=== PATIENT | male | born 1940 | race Caucasian/White ===

== ENCOUNTER 2016-12-19 13:23 | Inpatient (IN) | payer MEDICARE ==
[~2016-12-19] VITALS: Ht 177.8 cm; Wt 91.9 kg
[2016-12-19] VITALS (7 sets, daily range): BP systolic 116–190; BP diastolic 72–95; PULSE 52–70; RESP 16–20; O2SAT 93–98
[2016-12-19] MEDS ORDERED: CHOL100043 PO (13:29)
[2016-12-19] MEDS ORDERED: LISI10TA PO (13:29)
[2016-12-19] MEDS ORDERED: ASPI-973 PO (13:29)
--- NOTE | 2016-12-19 13:50 | ED.REPORT ---
HPI-Chest Pain 40 and Over Date of Service Dec 19, 2016 ED Provider: Gagandeep Baeza MD Pt is a 76 y/o male w/ a hx of HTN, CKD stage 1, mild asthma, hypothyroid, presenting to the ED from his PCP office due to intermittent exertional CP onset 1 month ago. He has been noticing mild chest discomfort while he exercises on the elliptical bicycle consistently for 1 month. He was last exercising this morning and decided to be seen by his PCP Dr. Salgado regarding these pains. An EKG was performed at his PCP visit which showed a LBBB as well as blood tests showing elevated troponin I of 0.3. He also notes that he hasn't been able to finish his regular exercise as consistently as normal in the sense that he tires slightly more easily. Pt denies SOB, nausea, vomiting, diaphoresis , fever, chills, cough, abdominal pain. Nursing Notes Stated Complaint: HEART PROBLEMS Chief Complaint: Chest Pain Nursing Notes Reviewed: Yes Allergies: Coded Allergies: No Known Drug Allergies (Verified Allergy, Unknown, 12/19/16) Scheduled Aspirin (Aspirin) 81 Mg Tablet 81 MG PO DAILY Cholecalciferol (Vitamin D3) (Vitamin D) 1,000 Unit Tablet 1,000 UNIT PO DAILY Lisinopril (Lisinopril) 10 Mg Tablet 15 MG PO DAILY General Time Seen by MD: 13:41 Chief Complaint Chest pain Hx Obtained From: Patient, Primary care provider Arrived By: Walk-in Sudden in Onset?: No Onset Occurred: More than a week ago... (1 month) Symptom Duration: Intermittent Location: : Substernal Quality: Burning, Painful Severity: Current: No pain currently Severity: Maximum: Mild Exacerbated by: Exertion, moderate Past Medical History Past Medical History Hypertension Asthma Hypothyroid CKD stage I Hx pneumonia Hx basal cell carcinoma Erectile dysfunction Past Surgical History Tonsillectomy Removal of skin cancers Smoking History Never Smoker Social History Alcohol Use: Denies alcohol use Other Social History: Ambulatory Status Independent Review of Systems Constitutional: Denies: Chills, Fever Respiratory: Denies: Non-productive cough, Shortness of breath Cardiovascular: Reports: Chest pain GI: Denies: Abdominal pain, Nausea, Vomiting Skin: Denies Diaphoresis Complete sys rev & neg: except as marked. Physical Exam Initial Vital Signs Vital Signs (First) Date Time Temp Pulse Resp B/P Pulse Ox O2 Delivery O2 Flow Rate FiO2 12/19/16 13:26 36.1 66 18 190/95 98 Room Air Initial VS: Reviewed, Vital signs abnormal Head / Eyes: Atraumatic, Normocephalic, PERRL ENT: Mucous membranes moist, Conjunctiva normal, No scleral icterus Neck: Supple, Full range of motion Extremities: Vascular intact, Neuro intact, No swelling, No tenderness Skin: Warm, Dry, No cyanosis Neurologic: Alert, Oriented, Nonfocal Psychiatric: Mood/affect normal, Behavior normal, Normal thought content General/Constitutional: Awake, Alert, No acute distress, Well appearing, Cooperative, Not toxic appearing Respiratory / Chest: Atraumatic, Breath sounds NL, Breath sounds = bilat, No respiratory distress, No rales, No rhonchi, No wheezing, No retractions, No stridor, No chest tenderness, No chest wall deformity, No crepitus Cardiovascular: Heart rate NL, Regular rhythm, Heart sounds NL, No gallop, No murmurs, No rubs, Cap refill not delayed, Peripheral circulation NL Abdomen: Atraumatic, Soft, Non-tender, No guarding, No rebound, No distention, No palpable mass Interpretation & Diagnostics Lab Results Interpretation Result Diagram: 12/19/16 1401 12/19/16 1401 Test 12/19/16 14:01 12/19/16 16:53 White Blood Count 5.9th/mm3 (3.8-10.1) Red Blood Count 4.29mil/mm3 (4.40-5.80) Hemoglobin 13.5g/dL (13.8-17.2) Hematocrit 39.2% (41.0-50.0) Mean Corpuscular Volume 91.4fL (81-100) Mean Corpuscular Hemoglobin 31.5pg (27.0-35.0) Mean Corpuscular Hemoglobin Concent 34.4% (32.0-37.0) Red Cell Distribution Width 12.0% (12.3-15.4) Platelet Count 186bil/L (150-400) Neutrophils (%) (Auto) 74.6% (40-74) Lymphocytes (%) (Auto) 17.1% (14-46) Monocytes (%) (Auto) 6.9% (4-12) Eosinophils (%) (Auto) 0.7% (0-5) Basophils (%) (Auto) 0.5% (0-3) Activated Partial Thromboplast Time 24.7sec (22.8-33.0) Sodium Level 137mEq/L (134-144) Potassium Level 4.3mEq/L (3.5-5.2) Chloride Level 99mEq/L (97-108) Carbon Dioxide Level 25mmol/L (18-29) Blood Urea Nitrogen 27mg/dL (8-27) Creatinine 1.47mg/dL (0.76-1.27) Estimat Glomerular Filtration Rate 50mL/min (>59) Glucose Level 94mg/dL (60-99) Calcium Level 9.0mg/dL (8.5-10.1) Magnesium Level 2.5mg/dL (1.6-2.6) Total Bilirubin 0.5mg/dL (0.0-1.2) Aspartate Amino Transf (AST/SGOT) 21U/L (0-50) Alanine Aminotransferase (ALT/SGPT) 10U/L (0-44) Alkaline Phosphatase 37U/L (25-160) Troponin T 0.106ug/L (0.0-0.011) Total Protein 6.6g/dL (6.4-8.4) Albumin 4.3g/dL (3.4-5.0) Thyroid Stimulating Hormone (TSH) 3.800uIU/mL (0.450-4.500) Hold Blue Top Tube Received (Received) ECG Interpretation ECG Interpretation: Sinus rhythm rate 65 LBBB Prolonged [place] interval No prior available for comparison Time: 13:51 Interpreted by: ED physician, Spring Machine Operator Normal ECG Interpretation: No acute ischemic changes X-Ray Chest Interpretation Chest Xray Interpretation: No acute cardiopulmonary disease. - From records transmitted to the ED View: Portable, 1 view Interpretation / Wet Read by: Interpret - Radiologist Re-Eval/Medical Decision Med Decision/Clinical Course 76-year-old male CKD 1 centimeter in by primary doctor for elevated troponin and new left bundle branch block compared to previous EKG from ten years ago. Troponin here is 0.1. EKG with left bundle branch block. Consultation cardiology who recommended admission for NSTEMI. They will cath in the morning. Per Cardiology, given aspirin, plavix, heparin gtt, atorvastatin, lopressor. To continue lopressor 25 bid. Time of Eval: 16:31 Re-Evaluation/Progress Note: Pt rechecked. Informed pt of need for admission. Pt understands and agrees with plan for admission. All questions addressed. Consultation #1: Referral / Consult Name: Mitchell Sellers MD Consulted With: Cardiology Call Returned at: 15:52 Gas Station Clerk: Will see patient, Agrees with eval, Agrees with plan Note: Will evaluate pt in ED. After evaluation, recommends admit on heparin drip and plavix. Plan for cath tomorrow morning. Consultation #2: Referral / Consult Name: Wyatt Abarca MD Consulted With: Hospitalist Call Returned at: 16:40 Gas Station Clerk: Will see patient, Agrees with eval, Agrees with plan, Accepts admit Counseled Regarding: Diagnosis, Lab results, Need for admission Discharge & Departure Primary Impression: NSTEMI (non-ST elevated myocardial infarction) Disposition: ADMITTED TO HOSPITAL Discharge Condition All VS Reviewed: Yes Condition: Stable Referrals: Emma Salgado MD (PCP) Crit Care Except Billable Proc Time Spent: 30-74 minutes Services Performed: Patient management by me, Time spent at bedside, Reviewing test results, Reviewing imaging, Discussing patient care, Documentation in record Scribe Attestation Portions of this note were transcribed by Fitz Brandt. I, Dr. Baeza personally performed the history, physical exam and medical decision-making; I reviewed and confirmed the accuracy of the information in the transcribed note. Signed by Shay Koehler, 12/19/16 - 1400 copies to: Emma Salgado MD, Ben M MD Dec 19, 2016 13:50 FITZ BRANDT Dec 19, 2016 13:52
[2016-12-19 14:14] LABS: BASOPHILS % (AUTO) 0.5 % (0-3); EOSINOPHILS % (AUTO) 0.7 % (0-5); MONOCYTES % (AUTO) 6.9 % (4-12); Mean Corpuscular Hemoglobin 31.5 pg (27.0-35.0); Mean Corpuscular Volume 91.4 fL (81-100); NEUTROPHILS % (AUTO) 74.6 % (40-74); Platelet Count 186 bil/L (150-400)
[2016-12-19 14:42] LABS: TROPONIN T 0.106 ug/L (0.0-0.011)
[2016-12-19 14:43] LABS: Magnesium 2.5 mg/dL (1.6-2.6)
[2016-12-19] MEDS ORDERED: Heparin 25K Unit/500mL 0.45 NS 25,000 UNIT in IV Premix 1 EACH IV ONE (16:35)
[2016-12-19] MEDS ORDERED: Heparin 5,000 Unit/mL Inj IVPUSH ONE (16:35)
[2016-12-19] MEDS ORDERED: 0.9% Sodium Chloride 1,000 ML IV ONE (16:38)
[2016-12-19] MEDS ORDERED: Ondansetron 2 mg/mL 2 mL Inj IVPUSH PRN (16:45)
[2016-12-19] MEDS ORDERED: Alum-Mag Hydrox-Simeth 30 mL Suspension PO PRN (16:45)
[2016-12-19] MEDS ORDERED: Atropine 1 mg/10 mL (Code) Syringe IVPUSH PRN (16:50)
[2016-12-19] MEDS: Heparin 25K Unit/500mL 0.45 NS 25,000 UNIT in IV Premix 1 EACH IV SCH (16:55)
--- NOTE | 2016-12-19 17:06 | PCM.HPMED ---
Subjective Date of Service Dec 19, 2016 Primary Provider: Admitting Physician: Primary Care Physician: Emma Salgado MD Attending Physician: Chief Complaint: Chest pain. Non-ST elevation PR History of Present Illness: This is a 76 result male with past medical history of hypertension, hypothyroidism, asthma, stage I CKD, who was been complaining of chest pain on and off approximately for a month or so . He usually goes to the gym and do elliptical exercises and stated he would have chest pain lasting 5 to repeat approximately, retrosternal, and will improved with resting . Initially he did not be too much attention to it but would stop exercising anytime he has chest pain. Today he developed chest pain, which is more intense and lasting longer. He went to his primary care doctor . An office EKG shows new left bundle branch block, blood tests show troponin of 0.3. Patient was sent to the emergency room for evaluation and admission for non-ST elevation PR . Patient denies any recent fever, chills, abdominal pain, nausea, vomiting, shortness of breath. Review of Systems: A comprehensive review of systems by 12 points is negative except for chest pain as described above in history of present illness Allergies Coded Allergies: fluticasone (Verified Adverse Reaction, Intermediate, coughing, 12/19/16) salmeterol (Verified Adverse Reaction, Intermediate, coughing, 12/19/16) Home Medications Aspirin (Aspirin) 81 Mg Tablet 81 MG PO DAILY Cholecalciferol (Vitamin D3) (Vitamin D) 1,000 Unit Tablet 1,000 UNIT PO DAILY Lisinopril (Lisinopril) 10 Mg Tablet 15 MG PO DAILY PMH Hypertension, Asthma, Hypothyroid, CKD stage I, Hx pneumonia, Hx basal cell carcinoma, Erectile dysfunction Surgical History Tonsillectomy Removal of skin cancer Family History Family history reviewed and it is pertinent for coronary artery disease Social History Hx Alcohol Use: No Hx Substance Use: No Smoking Status: Never Smoker Living Arrangement: with Family Exam Vital Signs Vital Sign - Last Date Time Temp Pulse Resp B/P Pulse Ox O2 Delivery O2 Flow Rate FiO2 12/19/16 13:26 36.1 66 18 190/95 98 Room Air Exam General/constitutional : NAD . well nourished male HEENT / Eyes: Atraumatic, Normocephalic, PERRL, sclerae anicteric Mouth : Moist oropharyngeal mucosa Neck: Supple, Full range of motion Chest: No chest wall tenderness, normal respiratory efforts Lungs: Clear to auscultation bilaterally, no crackles, no wheezing, no rales Heart: S1, S2 regular and rhythm, no gallop, no murmur Abdomen: Soft, non tender, non distended. No palpable mass Extremities: No calf tenderness, no cyanosis, no edema Skin: No rash, no ulcers, Warm, Dry, No cyanosis Neurologic: Alert, Oriented, grossly intact Lab and Diagnostics Result Diagram: 12/19/16 1401 12/19/16 1401 X-Rays, CTs and MRIs X-ray pending Assessment & Plan 1. NSTEMI Billy to [facility] Telemetry monitoring. COntinue trand of troponin Q6H x 2 . EKG for worsening chest pain . Start heparin drip per cardiac protocol. On Aspirin. Start Metoprolol and statins Nitroglycerin for chest pain . Morphine sulfate for chest pain not relieved by nitroglycerine Will need cardiac catheterization. Cardiology consulted 2. New LBBB : As above Chronic medical issues 1. Hypertension 2. Asthma : Quiescent 3. Hypothyroid : On hormonal supplement . Obtain TSH 4 CKD stage II: Hold lisinopril for ct angiogram . Use mucomyst . 5. Hx pneumonia 6. Hx basal cell carcinoma 7. Erectile dysfunction Admitted for non-ST elevation PR and new-onset of left bundle-branch block She was immediately stable. He started on heparin drip per cardiac protocol, aspirin, beta galina, statin. Cardiac catheterization is anticipated in 24 - 48 hours Home medications reviewed and reconciled ( see orders) Hold lisinopril. Creat 1.4. Mucomyst 1200 Q8H x 3 doses . Repeat bmp in am and monitor renal function closely over the course of hospital stay. Pain Evaluation: Adequate Pain Control VTE Prophylaxis Indicated: Meets Criteria for Anticoag Therapy VTE Prophylaxis: Other (anticoagulation therapy with heparin for non-ST elevation PR) Resuscitation Status: CPR: Attempt Resuscitation Time spent 75 minutes Wyatt Abarca MD Dec 19, 2016 17:06
--- NOTE | 2016-12-19 17:47 | CONS ---
[address] [address] CONSULTATION REPORT PATIENT: RAO FERGUSON : 1940 MR#: [id number] ADMIT: 12/19/2016 JOB ID: [id number] DATE OF SERVICE: 12/19/2016 CARDIOLOGY CONSULT: REASON FOR CONSULT: The ED physician called me to see this patient regarding exertional chest pain and abnormal troponin. However, Dr. Salgado called me earlier to discuss his case and abnormal troponin, as well as left bundle branch block. CHIEF COMPLAINT: Recurrent exertional chest pain during elliptical exercises from last one month. PRESENT HISTORY: This 76-year-old pleasant male who has a history of essential hypertension, chronic kidney disease, erectile dysfunction, history of asthma, low back pain, was seen by Dr. Salgado today because of above-mentioned chief complaints. According to the patient, about a while ago when he was doing elliptical exercise, he felt some discomfort in the lower part of his chest. When he stopped exercising 30 minutes, it will go away immediately. When he will do some other exercises, he will not have chest pain. It was not very intense. No radiation. No nausea, vomiting, sweating, or shortness of breath. He has this pattern from last one month. He exercises regularly. He goes to gym where he does elliptical exercises and the same thing happens. Usually his chest pain starts at 8 minutes into the recovery and lasts until he finishes his exercises. During continuation of exercise it does not get worse. No previous history of myocardial infarction or congestive heart failure or rheumatic heart disease or congenital heart disease or significant arrhythmias or history of DVT, pulmonary embolism, or stroke. Denies any fever, cough, expectoration. He has history of asthma which has gotten better. No intermittent claudication. He has history of erectile dysfunction. Denies any recent Cialis use. Today the patient was seen by his PCP, Dr. Salgado. He had a EKG which revealed left bundle branch block which is new in comparison to his EKG done many years ago. He had a blood test as an outpatient and his troponin was abnormal, hence Dr. Salgado called me and discussed. I advised Dr. Salgado to send this patient to the emergency department. At present, he is in the emergency department. He appears comfortable. He is not having any active chest pain. Last chest pain he had this morning when he was exercising. PAST MEDICAL HISTORY: Recurrent exertional chest discomfort from last one month with history of essential hypertension, chronic kidney disease, history of low back pain, asthma, cardiomegaly, erectile dysfunction, subclinical hypothyroidism. PAST SURGICAL HISTORY: As stated above. ALLERGIES: ADVAIR DISKUS. MEDICATIONS: At home he was taking lisinopril 10 mg tablet 1-1/2 tablets daily, aspirin 81 mg daily, Cialis 20 mg half tablet prior to sexual intercourse, acyclovir 400 mg three times a day as needed, Claritin 10 mg one tablet daily, famotidine 20 mg for acid control, melatonin 3 mg half tablet as needed at night, vitamin D3. SOCIAL HISTORY: Denies any tobacco abuse or alcohol abuse. FAMILY HISTORY: Positive for coronary artery disease. REVIEW OF SYSTEMS: Ten-point review of systems were obtained and they are negative except as stated above. PHYSICAL EXAMINATION: Blood pressure about 190/95 during the initial visit, respiratory rate 18, oxygen saturation 98% on room air, pulse 66. HEENT: No significant anemia, jaundice. Neck: No apparent JVP or carotid bruits. Chest: No obvious crepitation or rhonchi. CVS: S1 normal. P2 paradoxically split. No S3, no S4. No significant murmur. Abdomen: No obvious pulsatile mass. No splenomegaly. No obvious bruit. Extremities: No significant pedal edema. Distal pulses intact. Vascular: No evidence of critical limb ischemia. AUTO CLEANER: Alert. Oriented to time, place, and person. No obvious motor or sensory deficit. LABORATORIES: WBC 5.9, hemoglobin 13.5, platelets 186, polymorphs 74.6. Sodium 137, potassium 4.3, BUN 27, creatinine 1.47, magnesium 2.5. With normal bilirubin, AST, ALT. Troponin-T 0.106. Albumin 4.3. EKG revealed sinus rhythm with underlying left bundle branch block which is new as compared to the old EKG which was done many years ago. ASSESSMENT AND PLAN: Recurrent exertional chest discomfort from last one month, which has very predictable stable pattern, which happens 8 minutes into the elliptical exercises and lasts until he finishes his exercise. Otherwise at rest or doing other activities no chest pain. His last echo was in November 2008; at that time his LV ejection fraction was 65% without any significant valvular pathology. He has developed a new left bundle branch block and duration is unknown. As clinically he appears stable, compensated I do not think that he is having acute coronary syndrome right now. I do not think this left bundle branch block will present ST-elevation ND as left bundle branch block suggests extensive septal necrosis and anterior wall infarction and patient should be very symptomatic and possible heart failure symptoms which at present patient does not have. Likely patient had acute coronary syndrome at some point of time, as his troponin abnormal. In view of abnormal troponin, classical angina, and left bundle branch block, it is reasonable to consider left heart catheterization to define his coronary artery and in anticipation of revascularization. He has underlying renal insufficiency as well. It would be advisable to hydrate him before we embark upon left heart catheterization. At this point of time the plan is to admit him in the hospital and start him on anti-platelet therapy as well as anticoagulation, along with tolerable dose of beta galina and high intensity statin. Will start normal saline 100 mL/hour. Plan left heart catheterization in the morning. Benefits and the risks, which include, but not limited to, risk of bleeding, groin complication, myocardial infarction, stroke, , renal insufficiency, and peripheral vascular complication, etc. in details discussed with the patient and his . They verbalized understanding. All their questions were answered. His blood pressure is uncontrolled. He will be started on his blood pressure medications as well. Will check his lipid profile as well as TSH. We will also get a 2D echo. The patient has first-degree AV block, which is chronic. Further plan will be based on the result of above-mentioned diagnostic tests and his hospital course. Dr. Elder was with me during examination. He also agrees and concurs with the plan. Thanks for the cardiology consult. TIME: Total time spent today about 75 minutes, including having discussion with Dr. Salgado as well.
[2016-12-19] MEDS ORDERED: LORA10CA PO (18:11)
[2016-12-19] MEDS ORDERED: ACYC400T2 PO (18:11)
[2016-12-19] MEDS ORDERED: MELA3TAB35 PO (18:11)
[2016-12-19] MEDS ORDERED: TADA20TA PO (18:11)
[2016-12-19 18:12] LABS: INR 0.96 ratio
[2016-12-19 18:36] LABS: APPEARANCE,URINE HAZY (CLEAR,HAZY); COLOR,URINE YELLOW (YELLOW); OCCULT BLOOD,URINE TRACE (NEGATIVE); UROBILINOGEN,URINE NORMAL (NORMAL)
[2016-12-19 19:07] LABS: Mean Corpuscular Hemoglobin 30.8 pg (27.0-35.0); Mean Corpuscular Volume 92.3 fL (81-100)
[2016-12-19] MEDS ORDERED: diphenhydrAMINE 25 mg Capsule PO SCH (19:10)
--- NOTE | 2016-12-19 20:23 | NUR ---
Arrived to unit Pt arrived to PCC room 2003 at ~1735, A&Ox3, denied pain, VSS on RA. Pt on heparin gtt at 1000units/Hr, PTT drawn prior to shift change. Pt scheduled to have heart cath in the am, made NPO after midnight, nursing home administrator made aware. Oncoming NOC RN made aware of plan and PTT draw.
[2016-12-19] MEDS: Acetylcysteine 20% 200 mg/mL 4 mL Inhalation Solution PO SCH (22:00)
[2016-12-20] VITALS (17 sets, daily range): BP systolic 119–162; BP diastolic 63–97; PULSE 52–61; RESP 12–18; O2SAT 95–98
--- NOTE | 2016-12-20 04:42 | NUR ---
Heparin gtt Pt heparin infusing currently at 1025units/hr; PTT thus far this shift subtherapeutic x1. Pt denies chest pain or dyspnea, VSS with bradycardia; MD aware. HS dose of metoprolol halved per MD order. Tele SB 50s, LBBB, AVBI. NPO after midnight, pt aware.
[2016-12-20] MEDS: Acetylcysteine 20% 200 mg/mL 4 mL Inhalation Solution PO SCH ×2 (05:59→16:47)
--- NOTE | 2016-12-20 08:52 | NUR ---
Social Work: Initial Assessment D: Per EMR review, pt is a 76 year old male admitted for NSTEMI. Pt is [facility] Medicare with no LTC insurance or VA benefits. PCP is Emma Salgado MD. NOK is Mamta Schulz, , . Advanced directives completed- copy on hard chart. Readmit score is low, 0/8. STREET CLEANER met with pt and at bedside. Sw role explained and contact information provided. See initial assessment. Pt lives with his in a single-story home, with one step to enter. Pt is I with ADLs and uses no DME. Pt has never had HH or Skilled Rehab. Pt continues to drive and has no concerns about discharge home. Pt's states she will transport pt home when ready. EMR reviewed, pt is ambulating I during admission. No sw needs identified at this time. Cardiology is follow the pt. A: Pt who is I at baseline. P: Anticipate pt to discharge home via POV once medically stable; STREET CLEANER to continue to follow. JORGE LUIS Delgado Addendum: 12/20/16 at 0859 by PARIS RODRIGUEZ Amended: Links added.
--- NOTE | 2016-12-20 10:40 | NUR ---
Anxious/Hot Die Picker Pt stated he was slightly anxious about laborer hoisting. Provided booklet on Cardiac Cath, Stenting and Angioplasty, and nurse education. Patient and at bedside stated they were thankful for booklets and education. Patient ready for Cath procedure, two IV's place, patient emptied bladder, BP 162/96, P57 at 1047. Care continues.
--- NOTE | 2016-12-20 10:54 | DRSVH ---
PROCEDURE: X-RAY CHEST ONE VIEW ([id number]) INDICATIONS: MYOCARDIAL INFARCTION TECHNIQUE: One view of the chest was acquired. COMPARISON: [facility], CHEST 2VW, 12/19/2016, 12:40 PM. FINDINGS: Surgical changes and devices: None. Lungs and pleura: No pleural effusions or pneumothorax. Lungs are clear. Mediastinum: Mediastinal contours appear normal. Heart size is normal. Bones and chest wall: No suspicious bony lesions. Overlying soft tissues appear unremarkable. IMPRESSION: No acute cardiopulmonary disease. Dictated by: Juan Rojas [facility] Interpreted: Osmin Cardenas MD on 12/20/2016 at 10:53 Transcribed by: TATO on 12/20/2016 at 10:53 Approved by: Osmin Cardenas M.D. on 12/20/2016 at 16:22
[2016-12-20] MEDS ORDERED: Heparin 1,000 Units/500 mL NS Premix IV ONE ×2 (11:05→13:50)
[2016-12-20] MEDS ORDERED: 0.9% Sodium Chloride 2,000 ML ONE ×2 (11:05→11:07)
[2016-12-20] MEDS ORDERED: Heparin 1,000 Unit/mL 10 mL Inj ONE ×3 (11:05→11:07)
[2016-12-20] MEDS ORDERED: Nitroglycerin 50,000 mcg/250 mL D5W Premix IV ONE (11:07)
[2016-12-20] MEDS ORDERED: fentaNYL-PF 50 mCg/mL 2 mL Inj ONE (11:58)
--- NOTE | 2016-12-20 12:03 | NUR ---
B2B Account Executive Patient off the floor to B2B Account Executive at approximately 1150. Transported via bed, medical administrative technician notified.
--- NOTE | 2016-12-20 12:30 | NUR ---
took over patient care 1230pm
[2016-12-20] MEDS ORDERED: Adenosine Inj 20 ML IV ONE (12:37)
[2016-12-20] MEDS ORDERED: Adenosine 3 mg/mL 2 mL Inj ONE (12:43)
[2016-12-20] MEDS ORDERED: 0.9% Sodium Chloride 250 ML ONE (12:44)
[2016-12-20] MEDS ORDERED: Atropine 1 mg/10 mL (Code) Syringe ONE (12:55)
[2016-12-20] MEDS ORDERED: Phenylephrine/NS-PF 100 mCg/mL 5 mL Syringe IVPUSH ONE (12:55)
[2016-12-20] MEDS: 0.9% Sodium Chloride 1,000 ML IV SCH (13:35)
--- NOTE | 2016-12-20 13:39 | PCM.PNMED ---
Subjective Date of Service Dec 20, 2016 Subjective 76-year-old man presents with 4 week history of exertional angina, and new left bundle branch block No chest pain symptoms overnight. Feels generally well. Slightly anxious about upcoming cardiac cath. Exam Vital Signs Vital Sign - Last Date Time Temp Pulse Resp B/P Pulse Ox O2 Delivery O2 Flow Rate FiO2 12/20/16 10:44 36.5 57 16 162/96 98 Room Air Intake and Output 12/19/16 12/19/16 12/20/16 Cumulative From/Thru 15:00 23:00 07:00 12/19/16 13:26 - 12/20/16 06:12 Intake Total 1262 ml 2231 ml 3493 ml Output Total 300 ml 1500 ml 1800 ml Balance 962 ml 731 ml 1693 ml Intake Oral 918 ml 918 ml IV Total 1262 ml 1313 ml 2575 ml Output Urine Total 300 ml 1500 ml 1800 ml Exam General: Healthy elderly gentleman in no acute distress HEENT: sclerae anicteric, oral mucosa moist Neck: no JVD Chest: clear to auscultation Cardiac: S1S2, regular, no murmur Abdomen: BS normal, non-tender Extremities: No pitting edema Neuro: A&O, cranial nerves symmetric, motor strength 5/5, coordination normal IVs and Medications Medications Reviewed: Medications were reviewed in detail Lab and Diagnostics Result Diagram: 12/19/16 1900 12/20/16 0236 X-Rays, CTs and MRIs X-ray pending Assessment & Plan #. Unstable angina with elevated troponin. Recent onset exertional angina. He reports symptoms reliably and has had no prolonged chest pain episodes. - Admit to [facility] Telemetry monitoring. - EKG for worsening chest pain . - heparin drip per cardiac protocol. - On Aspirin. - Start Metoprolol and statins - Nitroglycerin for chest pain . Morphine sulfate for chest pain not relieved by nitroglycerine - cardiac catheterization today #. Hypertension, acute on chronic, uncontrolled. Systolic BP range 143-162. DBP range 92-97. - Expect blood pressure to respond to up titration of cardiac medications including beta galina - Await post catheterization medication recommendations from cardiology service # CKD stage III: Etiology is unclear, likely hypertension. On JOY inhibitor. EGFR 52. Urinary protein negative by dipstick. This may be contributing to troponin elevation. - Hold lisinopril - Hydration - Daily BMP following cardiac cath Chronic medical issues #. New LBBB : As above #. Asthma : Quiescent #. Hypothyroid : Stable #. Hx pneumonia #. Hx basal cell carcinoma #. Erectile dysfunction Venous thromboembolus prophylaxis: Patient on therapeutic heparin Disposition: Likely for discharge on 12/21 following cardiac catheterization on VTE Prophylaxis: Other (anticoagulation therapy with heparin for non-ST elevation AL) Resuscitation Status: CPR: Attempt Resuscitation Time spent 35 minutes Irving Woods MD Dec 20, 2016 13:39
--- NOTE | 2016-12-20 14:08 | DI95 ---
[address] [address] INTERVENTIONAL CARDIAC CATHETERIZATION PATIENT: RAO FERGUSON : 1940 MR#: [id number] ADMIT: 12/19/2016 JOB ID: [id number] PROCEDURE: 1. Percutaneous intervention on the circumflex. 2. Fractional flow reserve of the left anterior descending. INDICATION: Coronary artery disease. Acute coronary syndrome. PROCEDURAL DETAILS: The reader is referred to the procedure log for complete details. Briefly, he had an angiogram performed by Dr. Sellers earlier. He was found to have moderate disease in proximal LAD and severe disease in the proximal circumflex. I was asked to do an intervention. Please refer to the procedure log for complete details. This includes the coders as well. Briefly, a 7-Bulgarian Voda 3.5 guide was used. For future purposes, a Voda 4 might be better suited. Moderate calcification of the left main and the proximal coronary tree is noted. Three wires were used. One was placed in the LAD to protect it. The other two were placed in the first obtuse marginal branch and the ongoing circumflex respectively. Prior to that FFR was done in the LAD. FFR was 0.82, thereby indicating that this lesion could be safely deferred. We tried to use the same FFR wire to get into the circ. However, that wire did not navigate the calcified lesions. In view of that, run-through wires were used and were placed in the circumflex and OM. Following that balloon dilation was done with a 2.5 noncompliant balloon followed by stenting with a 275 x 18 mm Xience drug-eluting stent. The stent was post dilated with a 3.0 balloon at up to 18 atmospheres. Final angiographic results were excellent. To summarize, successful intervention on the proximal calcified circumflex. The patient is advised to stay on dual antiplatelet therapy for six months to one year post procedure.
[2016-12-20] MEDS ORDERED: 0.9% Sodium Chloride 250 ML BOLUS IV PRN (15:30)
[2016-12-20] MEDS ORDERED: SODIUM CHLORIDE IV SCH (15:30)
[2016-12-20] MEDS ORDERED: 0.9% Sodium Chloride 400 ML (4 HRS) IV ONE (15:30)
[2016-12-20] MEDS ORDERED: Atropine 1 mg/10 mL (Code) Syringe IVPUSH PRN (15:30)
[2016-12-20] MEDS ORDERED: Sodium Chloride LOK Flush 10 mL Syringe IVFLUSH PRN (15:30)
[2016-12-20] MEDS ORDERED: [UNRECOGNIZED DRUG - OTHER] IV SCH (15:30)
[2016-12-20] MEDS ORDERED: Ondansetron 2 mg/mL 2 mL Inj IVPUSH PRN (15:30)
--- NOTE | 2016-12-20 16:06 | NUR ---
report called to Yanni Howe R.N. Pt stable right groin without bleeding or hematoma.No c/o chest discomfort.Dr Kaplan has spoken with patient and spouse at the bedside and has reviewed pt's post intervention EKG.
--- NOTE | 2016-12-20 16:22 | NUR ---
pttx back to room in stable condition. Handoff at bedside,groin remains without bleeding or oozing, sinus rhthymon the monitor, noc/o chest pain or groin pain.
[2016-12-20] MEDS: Heparin 25K Unit/500mL 0.45 NS 25,000 UNIT in IV Premix 1 EACH IV SCH (16:55)
--- NOTE | 2016-12-20 17:32 | NUR ---
Groin Right groin, intact no signs of bleeding, swelling or hematoma. HOB at 20 degrees, instructed to stay in this position until 1814. Pedal pulses strong. Care continues.
--- NOTE | 2016-12-20 19:06 | CS94 ---
[address] [address] DIAGNOSTIC CARDIAC CATHETERIZATION PATIENT: RAO FERGUSON : 1940 MR#: [id number] ADMIT: 12/19/2016 JOB ID: [id number] SERVICE DATE: 12/20/2016 INDICATION: This 76-year-old, pleasant male who has a history of hypertension presented with exertional recurrent angina from last one month with new left bundle branch block and abnormal troponin. The patient was treated for acute coronary syndrome. Left heart catheterization was scheduled to define his coronary artery anatomy and determine further therapy. Benefits and risks, which include but not limited to, risk of bleeding, groin complication, myocardial infarction, stroke, , renal insufficiency, and peripheral vascular complication, etc. and details discussed with the patient and his . All their questions were answered. An informed consent was obtained. They verbalized understanding. CHRISTIAN SCIENCE PRACTITIONER: Mitchell Sellers MD PROCEDURE: 1. Left heart catheterization. 2. Coronary arteriography. 3. Left ventricular pressure measurement. DESCRIPTION OF PROCEDURE: Right groin was cleaned, prepped, and draped in the usual sterile fashion. The skin and subcutaneous tissue was anesthetized with 1% lidocaine. Right femoral artery was accessed. A 6-Russian sheath was introduced into the right femoral artery using modified Seldinger technique. The left coronary artery and the right coronary artery were engaged with 6-Russian JL4, JR4, as well as 6-Russian Artie catheter. Left ventricular pressure measurement was done with 6-Russian pigtail catheter. All the catheters were advanced over the guidewire and flushed with heparinized saline. All the exchanges were made over the guidewire. Total 80 mL Visipaque dye was used. The patient tolerated the procedure. There was no immediate complication. Sheath was left in for subsequent FFR of LAD and possible PCI of the circumflex by Dr. Kaplan. The patient has chronic renal insufficiency, hence he was given hydration overnight. HEMODYNAMICS: LV systolic pressure was about 151 mmHg, aortic pressure 151/74 mmHg, LVEDP was about 14 mmHg, and there was no significant pullback gradient between the aorta and left ventricle. LEFT VENTRICULOGRAPHY: Not performed to save dye because of underlying renal insufficiency. CORONARY ARTERY ANATOMY: 1. Left main artery: The left main artery was calcified. It has some ectasia in the mid portion. It was free of any critical disease. 2. Left anterior descending artery: The left anterior descending artery harbors calcification in the proximal portion. It appears to be having eccentric moderate disease in the proximal portion. There was ADRIAN-3 flow in the mid to distal portion of the LAD. Mid to distally it does not have any critical disease. There is a 1st diagonal branch which is a high take-off vessel, appears to be like a ramus vessel, and has luminal irregularities and mild to moderate disease in the proximal portion without any critical stenosis. There was ADRIAN-3 flow in that vessel as well. 3. Left circumflex artery: The left circumflex artery is a nondominant artery, however it is a decent artery. It has a tight 80% to 90% calcified disease in the proximal portion which extends into the high takeoff 1st obtuse marginal branch which further divides into the superior and inferior branches. Those superior/inferior branches were free of any significant disease. Mid circumflex has some luminal irregularity without any critical disease. 4. Right coronary artery: The right coronary artery is a large dominant artery and harbors calcification in the mid portion with mild disease. Distally it has mild disease without any critical stenosis. It divides into the PDA and PLV branches. The PLV branch further divides into multiple branches. The PDA branch of the right coronary artery has multiple moderate to severe lesions from the proximal all the way to the distal portion. The inferior branch of the PLV branch very distally has severe disease as well. CONCLUSION: Triple-vessel disease. Details as stated above. The patient underwent FFR by Dr. Kaplan of proximal LAD. According to Dr. Kaplan, FFR was 0.82; that means physiologically the lesion is not significant. Dr. Kaplan performed the PCI of the proximal circumflex. The PD and PLV lesions were decided to be treated medically. We will recommend echocardiogram to assess LV function. [facility]
--- NOTE | 2016-12-20 23:59 | NUR ---
VITALS/FLUIDS Pt A&Ox3, denies pain, groin site CDI and non-tender. Pt's HR below 60, HS metoprolol held. Pt's IV fluids continued @ 80 ml/hr due to contrast administration during cath procedure and GFR below 60 r/t CKD. PO fluids encouraged, no other issues noted at this time. Addendum: 12/21/16 at 0611 by MYRNA TUTTLE RN IV FLUIDS Pt demonstrated good po fluid intake of 500 ml and received 830 ml of IV fluids, good urine output of 1500ml, IV fluids DC'd this AM. Creatinine went from 1.41 to 1.29 and GFR went from 52 to 58.
[2016-12-21 00:01] VITALS: BP 134/69; PULSE 54; RESP 17; O2SAT 96
[2016-12-21] MEDS: 0.9% Sodium Chloride 1,000 ML IV SCH (02:05)
[2016-12-21 03:58] VITALS: BP 140/81; PULSE 52; RESP 18; O2SAT 95
[2016-12-21 05:18] VITALS: PULSE 50
[2016-12-21 09:04] VITALS: PULSE 58
[2016-12-21 09:40] VITALS: PULSE 65; RESP 18; O2SAT 98
--- NOTE | 2016-12-21 10:30 | NUR ---
Ready to go home Patient anxious to go home, asking this RN each time entering room. Notified
[2016-12-21 11:51] VITALS: BP 169/88; PULSE 57; RESP 18; O2SAT 96
--- NOTE | 2016-12-21 12:18 | DRSVH ---
[facility] [address] [place] [address] Echocardiogram Report Name: RAO FERGUSON CStudy Date : 12/21/2016 Height: 70 in Hospital Exam Location: [facility] Weight: 203 lb Gender: Male BSA: 2.1 m2 : 1940 Age: 76 yrs BP: 140/81 mmHg Reason For Study: POST CATH- ASSESS LV FUNCTION Ordering Physician: HOSPITALIST [facility] Performed By: Chris Diaz Referring Physician: Dr. mEma Salgado Interpretation Summary Left ventricular systolic function is low normal with the ejection fraction estimated to be 55-60% and appears slightly less dynamic compared to the previous study. There is a significant dyssynchronous contraction pattern, consistent with a conduction abnormality that is more prominent compared to the previous study but there are no focal wall motion abnormalities. Assessment of diastolic parameters indicates a relaxation abnormality of the left ventricle which is more prominent compared to the previous study. The right ventricle is normal size and right ventricular systolic function is at the lower limits of normal but appears unchanged compared to the previous study. The right ventricular systolic pressure is estimated at 29 mmHg assuming a right atrial pressure of 3 mm Hg and is likely similar to the previous study. The left atrium is mildly dilated and has mildly increased in size since the prior echo exam. There is no significant valvular heart disease. The ascending aorta is mildly enlarged but is unchanged compared to the previous study. Procedure: A limited 2D, color and Doppler echocardiogram was performed to assess left ventricular function. The study quality was technically good. Comparison is made with the echocardiogram of 12/01/08. The patient had a bundle branch block rhythm during the exam. Left Ventricle: The left ventricle is normal in size. There is normal left ventricular wall thickness. A false chord is noted (normal variant). Left ventricular systolic function is low normal. The ejection fraction is estimated to be 55-60%. This is slightly less dynamic compared to the previous study. There is a significant dyssynchronous contraction pattern, consistent with a conduction abnormality. This is more prominent compared to the previous study. There are no focal wall motion abnormalities. Assessment of diastolic parameters indicates a relaxation abnormality of the left ventricle, consistent with normal filling pressures. This is more prominent compared to the previous study. Right Ventricle: The right ventricle is normal size. Right ventricular systolic function is at the lower limits of normal. This is unchanged compared to the previous study. Atria: The left atrium is mildly dilated. The left atrium has mildly increased in size since the prior echo exam. Right atrial size is normal. Mitral Valve: There is mild mitral annular calcification. There is trace mitral regurgitation. This is unchanged compared to the previous study. Aortic Valve: The aortic valve is trileaflet. The aortic valve opens well. No aortic regurgitation is present. Tricuspid Valve: The tricuspid valve is normal. There is trace tricuspid regurgitation. The right ventricular systolic pressure is estimated at 29 mmHg assuming a right atrial pressure of 3 mm Hg. This is unchanged compared to the previous study. Pulmonic Valve: There is no significant valvular heart disease. Great Vessels: The aortic root is normal size. The ascending aorta is mildly enlarged. This is unchanged compared to the previous study. The IVC is of normal diameter and collapses greater than 50% with a sniff. This suggests a low right atrial pressure of 3 mm Hg. Pericardium/ Pleura There is no pericardial effusion. There is no pleural effusion. MMode/2D Measurements & Calculations LVIDd: 5.4 cm RA long axis: 4.7 cm asc Aorta LVIDs: 3.6 cm LA A2 area: 21.8 cm Diam: 3.7 cm FS: 33.2 % LA A4 area: 21.2 cm RA area: 17.8 cm IVSd: 0.99 cm LA length (vol): 5.2 cm RA vol: 57.9 ml LVPWd: 0.99 cm LA vol: 75.7 ml RA : 27.6 ml/m2 LA vol index: 36.0 ml/m IVC diam: 1.3 cm EDV(MOD-sp2) LV christian. diameter/BSA LV sys. diameter/BSA : 119.9 ml (cm/m^2): 2.6 (cm/m^2): 1.7 Doppler Measurements & Calculations Ao V2 max MV E max jaswinder MV E/A: 0.66 TR max jaswinder : 159.6 cm/sec : 57.5 cm/sec Med Peak E' Jaswinder : 255.6 cm/sec Ao max PG MV A max jaswinder TR max PG : 10.2 mmHg : 87.1 cm/sec E/E' med: 10.7 : 26.1 mmHg Ao mean PG MV A dur: 0.11 sec : 5.8 mmHg MV dec time Ao V2 mean : 0.24 sec : 114.5 cm/sec Ao V2 VTI: 33.0 cm Reading Physician:12:17 PM
[2016-12-21] MEDS ORDERED: CLOP75TA28 PO (12:54)
[2016-12-21] MEDS ORDERED: ATOR40TA69 PO (12:54)
[2016-12-21] MEDS ORDERED: NITR0.4T SL (12:54)
--- NOTE | 2016-12-21 13:06 | PCM.DIMED ---
Discharge Instructions Date of Service Dec 21, 2016 Dates of Hospitalization Dec 19, 2016 at 17:00 Discharge Diagnosis Discharge Diagnosis Unstable angina; elevated troponin; chronic kidney disease stage III; hypertension Medication Instructions Prescriptions for clopidogrel, atorvastatin, nitroglycerin have been transmitted to your pharmacy. Nitroglycerin should only be used if you have recurrent chest pain that does not subside with rest. You should not use nitroglycerin within 24 hours of having used Cialis. If you do have prolonged chest pain that does not respond to rest you call 911. Diet Other (low-sodium) Activity No restrictions Patient Instructions You may resume normal activities. We recommend that sure aerobic exercise at a light to moderate level until you have been seen by a criminal legal assistant. Your blood pressure was slightly elevated during this hospitalization, but we did not change your usual blood pressure medications. We recommend that you check in with Dr. Salgado within the next week for post-hospitalization follow-up, including blood pressure check and adjustment as needed. Follow-up Provider: Emma Salgado MD Follow-up with PCP in: 1 week Provider: Mitchell Sellers MD Follow-up in: 2 weeks (call Dr. Sellers's office for a posthospitalization follow-up appointment in 2-4 weeks) Irving Woods MD Dec 21, 2016 13:06
[2016-12-21] MEDS ORDERED: METO25TA6 PO (13:22)
--- NOTE | 2016-12-21 15:09 | NUR ---
Social Work: Discharge D: Pt discussed in am rounds. Pt is medically stable for discharge. EMR reviewed; pt is ambulating I. Pt had heart cath yesterday and is doing well per MD. No sw needs identified at this time. TIRE DESIGN ENGINEER met with pt at bedside to confirm dcp, reassess and discuss any unmet needs. Pt denies any home needs or concerns. Pt is eager to leave and his will transport. A: [place] who is [place]. P: Pt to discharge home today via POV; no barriers identified. JORGE LUIS Delgado
--- NOTE | 2016-12-21 19:04 | PCM.DC.MED ---
Discharge Summary Date of Service Dec 21, 2016 Dates of Hospitalization Date of Hospital Admission Dec 19, 2016 at 17:00 Date of Discharge: Dec 21, 2016 Providers: Admitting Physician: Wyatt Abarca MD Primary Care Physician: Emma Salgado MD Attending Physician: Wyatt Abarca MD Diagnosis at Time of Discharge Diagnosis at Time of Discharge Unstable angina; elevated troponin; chronic kidney disease stage III; hypertension Consultations Cardiology, Dr. Tatianna Sellers Interventional cardiology, Dr. Etelvina Kaplan Procedures XRay, CTs & MRIs PROCEDURE: X-RAY CHEST ONE VIEW ([id number]) IMPRESSION: No acute cardiopulmonary disease. . Cardiac Echo Impression Echocardiogram Report Name: RAO FERGUSON Study Date : 12/21/2016 Interpretation Summary Left ventricular systolic function is low normal with the ejection fraction estimated to be 55-60% and appears slightly less dynamic compared to the previous study. There is a significant dyssynchronous contraction pattern, consistent with a conduction abnormality that is more prominent compared to the previous study but there are no focal wall motion abnormalities. Assessment of diastolic parameters indicates a relaxation abnormality of the left ventricle which is more prominent compared to the previous study. The right ventricle is normal size and right ventricular systolic function is at the lower limits of normal but appears unchanged compared to the previous study. The right ventricular systolic pressure is estimated at 29 mmHg assuming a right atrial pressure of 3 mm Hg and is likely similar to the previous study. The left atrium is mildly dilated and has mildly increased in size since the prior echo exam. There is no significant valvular heart disease. The ascending aorta is mildly enlarged but is unchanged compared to the previous study. . Invasive Procedures INTERVENTIONAL CARDIAC CATHETERIZATION PATIENT: RAO FERGUSON : 1940 MR#: [id number] ADMIT: 12/19/2016 JOB ID: [id number] PROCEDURE: 1. Percutaneous intervention on the circumflex. 2. Fractional flow reserve of the left anterior descending. PROCEDURAL DETAILS: Three wires were used. One was placed in the LAD to protect it. The other two were placed in the first obtuse marginal branch and the ongoing circumflex respectively. Prior to that FFR was done in the LAD. FFR was 0.82, thereby indicating that this lesion could be safely deferred. We tried to use the same FFR wire to get into the circ. However, that wire did not navigate the calcified lesions. In view of that, run-through wires were used and were placed in the circumflex and OM. Following that balloon dilation was done with a 2.5 noncompliant balloon followed by stenting with a 275 x 18 mm Xience drug-eluting stent. The stent was post dilated with a 3.0 balloon at up to 18 atmospheres. Final angiographic results were excellent. To summarize, successful intervention on the proximal calcified circumflex. The patient is advised to stay on dual antiplatelet therapy for six months to one year post procedure. Ameya Kaplan MD 12/20/16 1344 . Other Diagnostics DIAGNOSTIC CARDIAC CATHETERIZATION PATIENT: RAO FERGUSON : 1940 PROCEDURE: 1. Left heart catheterization. 2. Coronary arteriography. 3. Left ventricular pressure measurement. HEMODYNAMICS: LV systolic pressure was about 151 mmHg, aortic pressure 151/74 mmHg, LVEDP was about 14 mmHg, and there was no significant pullback gradient between the aorta and left ventricle. LEFT VENTRICULOGRAPHY: Not performed to save dye because of underlying renal insufficiency. CORONARY ARTERY ANATOMY: 1. Left main artery: The left main artery was calcified. It has some ectasia in the mid portion. It was free of any critical disease. 2. Left anterior descending artery: The left anterior descending artery harbors calcification in the proximal portion. It appears to be having eccentric moderate disease in the proximal portion. There was ADRIAN-3 flow in the mid to distal portion of the LAD. Mid to distally it does not have any critical disease. There is a 1st diagonal branch which is a high take-off vessel, appears to be like a ramus vessel, and has luminal irregularities and mild to moderate disease in the proximal portion without any critical stenosis. There was ADRIAN-3 flow in that vessel as well. 3. Left circumflex artery: The left circumflex artery is a nondominant artery, however it is a decent artery. It has a tight 80% to 90% calcified disease in the proximal portion which extends into the high takeoff 1st obtuse marginal branch which further divides into the superior and inferior branches. Those superior/inferior branches were free of any significant disease. Mid circumflex has some luminal irregularity without any critical disease. 4. Right coronary artery: The right coronary artery is a large dominant artery and harbors calcification in the mid portion with mild disease. Distally it has mild disease without any critical stenosis. It divides into the PDA and PLV branches. The PLV branch further divides into multiple branches. The PDA branch of the right coronary artery has multiple moderate to severe lesions from the proximal all the way to the distal portion. The inferior branch of the PLV branch very distally has severe disease as well. CONCLUSION: Triple-vessel disease. Details as stated above. The patient underwent FFR by Dr. Kaplan of proximal LAD. According to Dr. Kaplan, FFR was 0.82; that means physiologically that the lesion is not significant. Dr. Kaplan performed the PCI of the proximal circumflex. The PD and PLV lesions were decided to be treated medically. We will recommend echocardiogram to assess LV function. Mitchell Sellers MD 12/20/16 [id number] . Brief History History of Present Illness (per admission note): This is a 76 result male with past medical history of hypertension, hypothyroidism, asthma, stage I CKD, who was been complaining of chest pain on and off approximately for a month or so . He usually goes to the gym and do elliptical exercises and stated he would have chest pain lasting 5 to repeat approximately, retrosternal, and will improved with resting . Initially he did not be too much attention to it but would stop exercising anytime he has chest pain. Today he developed chest pain, which is more intense and lasting longer. He went to his primary care doctor . An office EKG shows new left bundle branch block, blood tests show troponin of 0.3. Patient was sent to the emergency room for evaluation and admission for non-ST elevation CT . Patient denies any recent fever, chills, abdominal pain, nausea, vomiting, shortness of breath. . Hospital Course #. Unstable angina with elevated troponin. Recent onset exertional angina. He reports symptoms reliably and has had no prolonged chest pain episodes. No evidence of NSTEMI, although assessment complicated by CK GFX on troponin. - Catheterization and PCI performed; initiated dual antiplatelet therapy - The patient remained asymptomatic throughout - Echocardiogram unremarkable - Discharge with beta galina, clopidogrel, aspirin, when necessary nitroglycerin - Okay to resume exercise activities in 1-2 weeks #. New-onset left bundle branch block. No arrhythmia during telemetry monitoring. - Echocardiogram consistent with conduction abnormality but no other focal akinesis. #. Troponin elevation. Pattern did not correspond to acute rise and fall related to ischemic symptoms. Suspect some component of CK D reduced troponin clearance - Follow clinically #. Hypertension, acute on chronic, uncontrolled. Systolic BP range 143-162. DBP range 92-97. - Beta galina was added to prior hypertensive medications - Patient advised to seek primary care appointment within 1 week for blood pressure assessment and further medication adjustment # CKD stage III: Etiology is unclear, likely hypertension. On JOY inhibitor. EGFR 52. Urinary protein negative by dipstick. This may be contributing to troponin elevation. - Hold lisinopril - Hydration - Daily BMP following cardiac cath # Erectile dysfunction. Patient has prescription for tadalafil - Counseled not to use nitroglycerin within 24 hours of Cialis Chronic medical issues #. Asthma : Quiescent #. Hypothyroid : Stable #. Hx pneumonia #. Hx basal cell carcinoma . Exam Vital Signs (Last) Date Time Temp Pulse Resp B/P Pulse Ox O2 Delivery O2 Flow Rate FiO2 12/21/16 11:51 37.1 57 18 169/88 96 Room Air Exam General: Healthy elderly gentleman in no acute distress HEENT: sclerae anicteric, oral mucosa moist Neck: no JVD Chest: clear to auscultation Cardiac: S1S2, regular, no murmur Abdomen: BS normal, non-tender, groin site without significant ecchymoses or swelling. Extremities: No pitting edema Neuro: A&O, cranial nerves symmetric, motor strength 5/5, coordination normal Test 12/19/16 14:01 12/19/16 16:53 12/19/16 18:14 12/19/16 19:00 Neutrophils (%) (Auto) 74.6% (40-74) Lymphocytes (%) (Auto) 17.1% (14-46) Monocytes (%) (Auto) 6.9% (4-12) Eosinophils (%) (Auto) 0.7% (0-5) Basophils (%) (Auto) 0.5% (0-3) Prothrombin Time 10.3sec (8.1-12.5) Prothromb Time International Ratio 0.96ratio Hemoglobin A1c 5.7% (4.8-5.6) Magnesium Level 2.5mg/dL (1.6-2.6) Total Bilirubin 0.5mg/dL (0.0-1.2) Aspartate Amino Transf (AST/SGOT) 21U/L (0-50) Alanine Aminotransferase (ALT/SGPT) 10U/L (0-44) Alkaline Phosphatase 37U/L (25-160) Total Protein 6.6g/dL (6.4-8.4) Albumin 4.3g/dL (3.4-5.0) Thyroid Stimulating Hormone (TSH) 3.800uIU/mL (0.450-4.500) Hold Blue Top Tube Received (Received) Urine Color Yellow (YELLOW) Urine Appearance Hazy (CLEAR,HAZY) Urine pH 6.0 (5.0-8.0) Urine Specific [place] 1.010 (1.003-1.035) Urine Protein Negativemg/dL (NEG,TRACE) Urine Glucose (UA) Negativemg/dL (NEGATIVE) Urine Ketones Negativemg/dL (NEGATIVE) Urine Occult Blood Trace (NEGATIVE) Urine Nitrite Negative (NEGATIVE) Urine Bilirubin Negative (NEGATIVE) Urine Urobilinogen Normalmg/dL (NORMAL) Urine Leukocyte Esterase Negative (NEGATIVE) Urine RBC 0-2/hpf (0-2) Urine WBC 0-5/hpf (0-5) Urine Epithelial Cells Occasional/hpf (NONE-MOD) Urine Crystals None seen (NONE SEEN) Urine Bacteria Few/hpf (NONE-FEW) Urine Hyaline Casts Rare/lpf (NONE) Urine Granular Casts None seen (NONE SEEN) Urine Waxy Casts None seen (NONE SEEN) Urine Red Blood Cell Casts None seen (NONE SEEN) Urine White Blood Cell Casts None seen (NONE SEEN) Urine Mucus Present (None Seen) Urine Trichomonas None seen (NONE SEEN) Urine Yeast None (NONE SEEN) Urinalysis Comment None Urine Culture Reflexed Not indicated White Blood Count 6.4th/mm3 (3.8-10.1) Red Blood Count 4.28mil/mm3 (4.40-5.80) Hemoglobin 13.2g/dL (13.8-17.2) Hematocrit 39.5% (41.0-50.0) Mean Corpuscular Volume 92.3fL (81-100) Mean Corpuscular Hemoglobin 30.8pg (27.0-35.0) Mean Corpuscular Hemoglobin Concent 33.4% (32.0-37.0) Red Cell Distribution Width 12.0% (12.3-15.4) Platelet Count 184bil/L (150-400) Test 12/20/16 02:36 12/20/16 04:33 12/21/16 02:24 12/21/16 02:36 Triglycerides Level 35mg/dL (0-149) Cholesterol Level 166mg/dL (100-199) LDL Cholesterol, Calculated 94.000mg/dL (0-99) VLDL Cholesterol 7.000mg/dL HDL Cholesterol 65mg/dL (>39) Cholesterol/HDL Ratio 2.55 (0.0-4.4) Activated Partial Thromboplast Time 60.6sec (22.8-33.0) Sodium Level 142mEq/L (134-144) Potassium Level 4.5mEq/L (3.5-5.2) Chloride Level 107mEq/L (97-108) Carbon Dioxide Level 26mmol/L (18-29) Blood Urea Nitrogen 21mg/dL (8-27) Creatinine 1.29mg/dL (0.76-1.27) Estimat Glomerular Filtration Rate 58mL/min (>59) Glucose Level 108mg/dL (60-99) Calcium Level 8.5mg/dL (8.5-10.1) Troponin T 0.272ug/L (0.0-0.011) Discharge Medications Discharge Medications Aspirin (Aspirin) 81 Mg Tablet 81 MG PO DAILY (Reported) Atorvastatin Calcium (Atorvastatin Calcium) 40 Mg Tablet 40 MG PO HS Prescribed by: BLADIMIR MEJIA MD Cholecalciferol (Vitamin D3) (Vitamin D) 1,000 Unit Tablet 1,000 UNIT PO DAILY ( Reported) Clopidogrel (Clopidogrel) 75 Mg Tablet 75 MG PO DAILY Prescribed by: BLADIMIR MEJIA MD Lisinopril (Lisinopril) 10 Mg Tablet 15 MG PO DAILY (Reported) Metoprolol Tartrate (Metoprolol Tartrate) 25 Mg Tablet 25 MG PO BID Prescribed by: BLADIMIR MEJIA MD As needed Acyclovir (Acyclovir) 400 Mg Tablet 400 MG PO TID PRN PRN herpes (Reported) Loratadine (Claritin) 10 Mg Capsule 10 MG PO DAILY PRN PRN For Congestion ( Reported) Melatonin (Melatonin) 3 Mg Tablet 1.5 MG PO HS PRN PRN For Insomnia (Reported) Nitroglycerin SL (Nitrostat) 0.4 Mg Tab.subl 0.4 MG SL Q5MIN PRN PRN For Chest Pain IF SBP > 90 Prescribed by: BLADIMIR MEJIA MD Tadalafil (Cialis) 20 Mg Tablet 20 MG PO PRN PRN PRN sexual activity (Reported) As directed by physician. Additional med instructions Prescriptions for clopidogrel, atorvastatin, nitroglycerin have been transmitted to your pharmacy. Nitroglycerin should only be used if you have recurrent chest pain that does not subside with rest. You should not use nitroglycerin within 24 hours of having used Cialis. If you do have prolonged chest pain that does not respond to rest you call 911. Followup Plan Discharge Diet: Other (low-sodium) Discharge Activity: No restrictions Patient Instructions You may resume normal activities. We recommend that sure aerobic exercise at a light to moderate level until you have been seen by a assembler garment form. Your blood pressure was slightly elevated during this hospitalization, but we did not change your usual blood pressure medications. We recommend that you check in with Dr. Salgado within the next week for post-hospitalization follow-up, including blood pressure check and adjustment as needed. Follow-up Provider: Emma Salgado MD Follow-up with PCP in: 1 week Provider: Mitchell Sellers MD Follow-up in: 2 weeks (call Dr. Sellers's office for a posthospitalization follow-up appointment in 2-4 weeks) Time spent 35 minutes copies to: Emma Salgado MD; Mitchell Sellers MD, Jeffrey W MD Dec 21, 2016 13:07
== END 2016-12-21 14:24 | disposition home or self-care (01) | DRG 247 ==
LOC: SED 13:23 → PCC 17:00
PROVIDERS: ADMIT Internal Medicine; ATTEND Internal Medicine
PROC: 027034Z Dilation of Coronary Artery, One Artery with Drug-eluting Intraluminal Device, Percutaneous Approach (ICD-10-PCS; principal; 2016-12-20)
PROC: 4A023N7 Measurement of Cardiac Sampling and Pressure, Left Heart, Percutaneous Approach (ICD-10-PCS; 2016-12-20)
PROC: B2111ZZ Fluoroscopy of Multiple Coronary Arteries using Low Osmolar Contrast (ICD-10-PCS; 2016-12-20)
DX: I25.110 Atherosclerotic heart disease of native coronary artery with unstable angina pectoris (principal); I44.7 Left bundle-branch block, unspecified; I12.9 Hypertensive chronic kidney disease with stage 1 through stage 4 chronic kidney disease, or unspecified chronic kidney disease; N18.3 Chronic kidney disease, stage 3 (moderate); E03.9 Hypothyroidism, unspecified; J45.909 Unspecified asthma, uncomplicated